=== PATIENT | female | born 1950 | race Caucasian/White ===

== ENCOUNTER → 2020-12-04 15:59 | Outpatient (CLI) | payer MEDICARE, OTHER, SELFPAY ==
--- NOTE | ~2020-12-04 | MM_ITS ---
EXAMINATION: MM screening [facility] BI w monet HISTORY: Screening mammogram TECHNIQUE: Craniocaudal and mediolateral oblique 3-D tomosynthesis images were obtained and synthetic 2-D images were generated. CAD analysis was submitted and interpreted. COMPARISON: 10/10/2019, 08/16/2018, 07/13/2017 bilateral digital screening mammogram examinations BREAST PARENCHYMAL COMPOSITION: The breasts are heterogeneously dense, which may obscure small masses . FINDINGS: Right upper outer quadrant 4.7 mm circumscribed benign lesion, likely a benign intramammary lymph node (craniocaudal Tomosynthesis image 23/72) Circumscribed 2.7 mm probable axillary tail left intramammary lymph node, present on previous mammogr ams dating back to 07/13/2017. There is no evidence of suspicious mass, calcification, or architectural distortion to suggest malig amanda in either breast. There has been no suspicious interval change. IMPRESSION: 1. No mammographic evidence of malignancy. 2. Recommend routine screening mammography in one year. BI-RADS Category 2: Benign finding(s). Reviewed, dictated and finalized at location A. [facility]
== END ==
PROVIDERS: Visit Provider Nurse Practitioner Obstetrics & Gynecology
DX: Z12.31 Encounter for screening mammogram for malignant neoplasm of breast (principal)
CPT/HCPCS: 77063; 77067

== ENCOUNTER → 2021-05-04 08:18 | Outpatient (CLI) | payer MEDICARE, OTHER, SELFPAY ==
--- NOTE | ~2021-05-04 | XR_ITS ---
EXAMINATION:XR cervical spine min 6V DATE: 05/04/2021 09:53 INDICATION: Neck pain TECHNIQUE: AP, lateral, lateral swimmers, bilateral oblique, and odontoid views of the cervical spine are provided. COMPARISON: None FINDINGS: There are 2 mm of anterolisthesis of C4 on C5. The odontoid is intact. No fracture is ident ified. The vertebral body heights are maintained. There is mild loss of intervertebral disc space hei ght at C5-6 and C6-7. There is moderate facet and uncovertebral joint osteoarthritis throughout the c ervical spine. IMPRESSION: 1. Moderate cervical spondylosis without acute findings. Reviewed, dictated and finalized at location A.
== END ==
PROVIDERS: Visit Provider Physician Assistant
DX: M79.601 Pain in right arm (principal); M79.602 Pain in left arm; M47.892 Other spondylosis, cervical region
CPT/HCPCS: 72052

== ENCOUNTER → 2021-12-29 09:15 | Outpatient (CLI) | payer MEDICARE, OTHER, SELFPAY ==
[2021-12-29 11:54] LABS: SARS-CoV-2 RNA PCR Negative
== END ==
PROVIDERS: PCP Family Medicine; Visit Provider Physician Assistant
DX: R05.9 Cough, unspecified (principal); Z20.822 Contact with and (suspected) exposure to COVID-19
CPT/HCPCS: C9803; U0003; U0005

== ENCOUNTER 2022-02-02 17:31 | Emergency (ER) | payer MEDICARE, OTHER, SELFPAY ==
[2022-02-02 17:33] VITALS: BP 153/92; PULSE 116; RESP 18; TEMP 36.9; O2SAT 99
--- NOTE | 2022-02-02 17:59 | ED.EPISTAXIS ---
HPI - Epistaxis General Chief complaint: Epistaxis Stated complaint: nose bleed Time Seen by Provider: 02/02/22 17:57 Source: patient Mode of arrival: ambulatory Limitations: no limitations History of Present Illness HPI Narrative: Patient is a 72-year-old female who presents the ED with report of epistaxis. Patient reports she was working outside in the yard planting [place] around 430 pm today when she bent over and suddenly felt dripping from her nose. She looked down she had a nosebleed coming from her left nostril. The bleeding has persisted since then. She has tried holding pressure at home but it has persisted prompting her presentation to the ED today. Patient has had 1 prior similar nosebleed which she was able to control at home. She does not follow with an ENT but did see one in the distant past. No dizziness, lightheadedness, weakness. No recent forceful nose blowing, congestion, rhinorrhea, fevers, chills. Related Data Home Medications Medication Instructions Recorded Confirmed cholecalciferol (vitamin D3) 25 1,000 unit PO DAILY 09/30/19 01/03/22 mcg (1,000 unit) capsule lysine 500 mg tablet 500 mg PO DAILY 09/30/19 01/03/22 prasterone (dhea) 50 mg tablet 50 mg PO DAILY 09/30/19 01/03/22 valacyclovir 1 gram tablet 1,000 mg PO TID 09/30/19 01/03/22 vitamin B12 500 mcg-folic acid 400 1 tablet PO DAILY 09/30/19 01/03/22 mcg tablet zinc 50 mg tablet 50 mg PO DAILY 09/30/19 01/03/22 Allergies Allergy/AdvReac Type Severity Reaction Status Date / Time codeine Allergy Unknown nightmares Verified 02/02/22 18:57 and hallucinations Review of Systems Review of Systems: CONSTITUTIONAL: Denies fever, chills. ENT: Reports L sided epistaxis. Denies rhinorrhea, congestion. CARDIOVASCULAR: Denies chest pain. RESPIRATORY: Denies cough or dyspnea. GASTROINTESTINAL: Denies abdominal pain, nausea, vomiting, or diarrhea. NEUROLOGIC: Denies dizziness, lightheadedness, numbness, or weakness. All systems reviewed & are unremarkable except as noted in HPI and below PMFSH Past Medical History Medical History Asymptomatic microscopic hematuria Osteopenia Retinal tear s/p repair Surgical History Surgical History History of appendectomy Family History Family History Father Diabetes mellitus Family history of Alzheimer's disease Family history of coronary artery disease Mother Hypertension Family history of coronary artery disease Sibling Hypertension Social History Social History Smoking packs per day: 0.5 Smoking cigarettes per day: 10.0 Years smoked: 13 Smoking pack-years: 6.50 Smoking status: Never smoker Tobacco type: cigarettes Second hand tobacco smoke exposure: No Smoking end date: 10/09/04 Alcohol intake: current Drinks per week: 3 Substance use: never Substance use type: does not use Gender identity (if verbalized by the patient): Female Sexual Orientation (if Verbalized by the Patient): Straight or Heterosexual Exam Narrative: GENERAL: Well appearing, well-nourished, non-toxic, in no acute distress. HEAD: Normocephalic, atraumatic. EYES: PERRL/EOMI, conjunctivae clear bilaterally. NOSE: Dried blood around L nare. No active areas of bleeding from Kiesselbach plexus upon evaluation. THROAT: Pharynx clear, no exudate. MMs moist. Minimal blood in posterior pharynx, no blood streaming down. NECK: Supple. No adenopathy, no masses. RESPIRATORY: Airway patent, respirations nonlabored. Clear to auscultation bilaterally, no rales, rhonchi, wheezing. CARDIOVASCULAR: Regular rate and rhythm without murmurs, rubs, or gallops. Radial pulses 2+ and equal bilaterally. MUSCULOSKELETAL: Moves all extremities. Strength/ROM intact without gross deformities. SKIN:
[2022-02-02 18:56] VITALS: BP 140/105; PULSE 92; RESP 18; O2SAT 98
[2022-02-02 20:10] VITALS: BP 149/106; PULSE 79; RESP 14; O2SAT 98
== END 2022-02-02 20:10 | disposition home or self-care (01) ==
PROVIDERS: Emergency Provider Emergency Medicine; PCP Family Medicine
DX: R04.0 Epistaxis (principal); M85.80 Other specified disorders of bone density and structure, unspecified site; Z87.891 Personal history of nicotine dependence
CPT/HCPCS: 30905; 99282

== ENCOUNTER 2023-02-02 00:36 | Day surgery (SDC) | payer MEDICARE, OTHER, SELFPAY ==
--- NOTE | 2023-02-01 20:37 | PM.HPGS ---
History of Present Illness History of Present Illness Consent: Risks, benefits, and alternatives have been discussed and questions answered. Patient agrees to proceed with procedure. Chief complaint: Dyskinesia of Esophagus, Hx of Colon Polyps Narrative: Madhuri Fowler is a 73 year old female with dysphagia, hx of Schatzki's ring, and hx of polyps . Review of Systems Review of Systems: All systems reviewed & are unremarkable except as noted in HPI and below PMFSH Past Medical History Medical History Asymptomatic microscopic hematuria HTN (hypertension) Obesity Osteopenia Retinal tear s/p repair Surgical History Surgical History History of appendectomy Family History Family History Father Diabetes mellitus Family history of Alzheimer's disease Family history of coronary artery disease Mother Hypertension Family history of coronary artery disease Sibling Hypertension Social History Social History Smoking packs per day: 0.5 Smoking cigarettes per day: 10.0 Years smoked: 10 Smoking pack-years: 5.00 Smoking status: Former smoker Tobacco type: cigarettes Second hand tobacco smoke exposure: No Smoking end date: 10/09/04 Alcohol intake: current Drinks per week: 1 Substance use: never Substance use type: does not use Living arrangements: with family Occupation/Education: retired Gender identity (if verbalized by the patient): Female Sexual Orientation (if Verbalized by the Patient): Straight or Heterosexual Spiritual care concerns: No Meds Home Medications and Allergies Home Medications Medication Instructions Recorded Confirmed Type prasterone (dhea) 50 mg tablet 50 mg PO DAILY 09/30/19 01/26/23 History (DHEA) vitamin B12 500 mcg-folic acid 400 1 tablet PO DAILY 09/30/19 01/26/23 History mcg tablet zinc 50 mg tablet 50 mg PO DAILY 09/30/19 01/26/23 History pantoprazole 40 mg tablet,delayed 40 mg PO QAM #90 tabs 09/08/22 01/26/23 Rx release lisinopril 10 mg tablet 10 mg PO DAILY #90 tabs 12/05/22 01/26/23 Rx Calcium With Folate 1 cap PO DAILY 01/26/23 01/26/23 History ascorbic acid (vitamin C) 500 mg 500 mg PO DAILY 01/26/23 01/26/23 History capsule biotin 100 mg PO DAILY 01/26/23 01/26/23 History cholecalciferol (vitamin D3) 125 125 mcg PO DAILY 01/26/23 01/26/23 History mcg (5,000 unit) tablet (Vitamin D3) magnesium 500 mg tablet 500 mg PO QACDINNER 01/26/23 01/26/23 History valacyclovir 500 mg tablet 500 mg PO DAILY 01/26/23 01/26/23 History Allergies Allergy/AdvReac Type Severity Reaction Status Date / Time codeine AdvReac Intermediate nightmares Verified 02/02/23 12:01 and hallucinations Exam Const: General: alert Orientation/consciousness: patient oriented x3 Resp: Auscultation: clear to auscultation bilaterally Cardio: Rhythm: regular rhythm GI: GI Palp: Yes Soft to palpation and No Tenderness to palpation present (GI) Neuro: General: patient oriented x3 Assessment and Plan Assessment and plan (1) History of esophageal stricture: Code(s): Z87.19 - Personal history of other diseases of the digestive system Status: Acute Assessment and Plan: EGD with possible biopsy or dilatation or cautery. (2) History of colon polyps: Code(s): Z86.010 - Personal history of colonic polyps Status: Acute Assessment and Plan: Colonoscopy with possible biopsy or polypectomy or cautery or injection of substances.
[2023-02-02 12:02] VITALS: BP 133/90; PULSE 85; RESP 18; TEMP 36.1; O2SAT 97
[2023-02-02] MEDS: LACTATED RINGERS 1,000 ML 150 ML IV CONT (12:19)
--- NOTE | 2023-02-02 12:38 | WPDANESEPPF ---
Anes - Initial Pre Proc Eval Procedure: Operation Date: 02/02/23 13:15 Proposed Procedures p Esophagogastroduodenoscopy & Colonoscopy - Antoni Franklin MD Date/Time: 02/02/23 12:38 Surgeon: Antoni Franklin MD Pre Op Diagnosis: Dyskinesia of Esophagus, Hx of Colon Polyps Patient Data Age: 73 Gender: F Height: 1.63 m Weight: 78.6 kg Last Vital Signs Temp 36.1 C L 02/02/23 12:02 Pulse 85 02/02/23 12:02 Resp 18 02/02/23 12:02 BP 133/90 02/02/23 12:02 Pulse Ox 97 02/02/23 12:02 O2 Del Method Room Air 02/02/23 12:02 Allergies Allergy/AdvReac Type Severity Reaction Status Date / Time codeine AdvReac Intermediate nightmares Verified 02/02/23 12:01 and hallucinations Home Medications Medication Instructions Recorded Confirmed Type prasterone (dhea) 50 mg tablet 50 mg PO DAILY 09/30/19 01/26/23 History (DHEA) vitamin B12 500 mcg-folic acid 400 1 tablet PO DAILY 09/30/19 01/26/23 History mcg tablet zinc 50 mg tablet 50 mg PO DAILY 09/30/19 01/26/23 History pantoprazole 40 mg tablet,delayed 40 mg PO QAM #90 tabs 09/08/22 01/26/23 Rx release lisinopril 10 mg tablet 10 mg PO DAILY #90 tabs 12/05/22 01/26/23 Rx Calcium With Folate 1 cap PO DAILY 01/26/23 01/26/23 History ascorbic acid (vitamin C) 500 mg 500 mg PO DAILY 01/26/23 01/26/23 History capsule biotin 100 mg PO DAILY 01/26/23 01/26/23 History cholecalciferol (vitamin D3) 125 125 mcg PO DAILY 01/26/23 01/26/23 History mcg (5,000 unit) tablet (Vitamin D3) magnesium 500 mg tablet 500 mg PO QACDINNER 01/26/23 01/26/23 History valacyclovir 500 mg tablet 500 mg PO DAILY 01/26/23 01/26/23 History Patient hx anesthesia problems: none Family hx anesthesia problems: none Results Review: All pre-operative results and documents have been reviewed as part of the pre-operative evaluation. PMF Past Medical History Medical History Asymptomatic microscopic hematuria HTN (hypertension) Obesity Osteopenia Retinal tear s/p repair Surgical History Surgical History History of appendectomy Family History Family History Father Diabetes mellitus Family history of Alzheimer's disease Family history of coronary artery disease Mother Hypertension Family history of coronary artery disease Sibling Hypertension Social History Social History Smoking packs per day: 0.5 Smoking cigarettes per day: 10.0 Years smoked: 10 Smoking pack-years: 5.00 Smoking status: Former smoker Tobacco type: cigarettes Second hand tobacco smoke exposure: No Smoking end date: 10/09/04 Alcohol intake: current Drinks per week: 1 Substance use: never Substance use type: does not use Living arrangements: with family Occupation/Education: retired Gender identity (if verbalized by the patient): Female Sexual Orientation (if Verbalized by the Patient): Straight or Heterosexual Spiritual care concerns: No Anes - Eval Final PreProcedure Day of Procedure 02/02/23 12:38 Patient weight: overweight Heart: regular rate and rhythm Lungs: clear to auscultation Airway: Mallampati scale class 1 Neurological: alert and oriented Last oral intake: >/= 8 hours ASA classification: II Emergent: no Anesthetic plan: proceed Anesthesia type and monitoring: general GIVS and standard monitoring Results Review: All pre-operative results and documents have been reviewed as part of the pre-operative evaluation. Informed Consent: The patient's anesthetic plan and its attendant risks and benefits were discussed with the patient/family/POA. Questions were solicited and answers provided to the satisfaction of the patient/family/POA.
--- NOTE | 2023-02-02 13:07 | SUR.OPER ---
EGD: START 1308 -, END 1312. COLONOSCOPY: START-1318, END-1327 PATIENT HAD SMALL BLOODY NOSE DURING PROCEDURE. ANESTHESIA SUCTIONED WITH JAMAICAUER.
[2023-02-02] MEDS: SIMETHICONE ORAL SUSPENSION 20 MG/0.3 ML 30 ML BOTTLE 0.6 ML IRRIGATION (13:23)
[2023-02-02 13:33] VITALS: BP 123/71; PULSE 75; RESP 18; O2SAT 97
[2023-02-02 13:43] VITALS: BP 122/63; PULSE 71; RESP 20; O2SAT 98
[2023-02-02 13:53] VITALS: BP 135/77; PULSE 69; RESP 20; O2SAT 100
--- NOTE | 2023-02-02 14:04 | SUR.PHASEII ---
Patient arrived in postop with gauze packing in right nostril after nosebleed during procedure. After 20 minutes in postop, gauze removed. No further bleeding from nostril noted at this time. Patient and spouse instructed to go to ED if nosebleed resumes and unable to stop.
== END 2023-02-02 14:09 | disposition home or self-care (01) ==
PROVIDERS: PCP Family Medicine; Visit Provider Internal Medicine Gastroenterology
PROC: 0DJ08ZZ Inspection of Upper Intestinal Tract, Via Natural or Artificial Opening Endoscopic (ICD-10-PCS; CPT 43235; principal; 2023-02-02 13:15)
DX: Z12.11 Encounter for screening for malignant neoplasm of colon (principal); K57.30 Diverticulosis of large intestine without perforation or abscess without bleeding; K64.8 Other hemorrhoids; Z86.010 Personal history of colon polyps; K22.2 Esophageal obstruction; I10 Essential (primary) hypertension; M85.80 Other specified disorders of bone density and structure, unspecified site; Z87.891 Personal history of nicotine dependence
CPT/HCPCS: 43249; G0105; C1726; J2704; J7120

== ENCOUNTER → 2023-05-16 12:08 | Outpatient (CLI) | payer MEDICARE, OTHER, SELFPAY ==
--- NOTE | ~2023-05-16 | XR_ITS ---
EXAMINATION:XR_[id number]_CR, XR thoracic spine 2V DATE: 05/16/2023 12:45 INDICATION: Cervical and thoracic back pain. TECHNIQUE: 1. AP, lateral, lateral swimmers and odontoid views of the cervical spine are provided. 2. AP and lateral views of the thoracic spine were obtained. COMPARISON: Two-view chest radiograph dated 07/12/2016 FINDINGS: Cervical spine: Straightening of the normal cervical lordosis. Vertebral body heights are normal. Mild disc height lo ss at C5-C6 and C6-C7. Odontoid is intact. Mild osteoarthritis at the atlantoaxial articulation. [place] re facet osteoarthritis on the left at C3-C4 and C4-C5. Mild to moderate osteoarthritis prominence of the remaining cervical spine. Prevertebral soft tissues are normal. Thoracic spine: 10 degree lower thoracic levoscoliosis. Sagittal alignment is normal. Unchanged mild anterior wedging at T6. Moderate disc height loss at T6-T7 T7-T8 and T10-11 and mild disc height loss at the remainin g thoracic levels. Visualized portion of lungs are clear with no pleural effusion or pneumothorax. Ca rdiomediastinal silhouette is normal. IMPRESSION: 1. Mild cervical spondylosis. 2. Chronic mild anterior wedging at T6. No evident acute osseous abnormality. 3. Moderate thoracic spondylosis with mild lower thoracic levoscoliosis. Reviewed, dictated and finalized at location L. IMPRESSION: 1. Mild cervical spondylosis. 2. Chronic mild anterior wedging at T6. No evident acute osseous abnormality. 3. Moderate thoracic spondylosis with mild lower thoracic levoscoliosis.
== END ==
PROVIDERS: PCP Family Medicine; Visit Provider Family Medicine
DX: M47.892 Other spondylosis, cervical region (principal); M47.894 Other spondylosis, thoracic region
CPT/HCPCS: 72040; 72070

== ENCOUNTER → 2023-10-17 12:10 | Outpatient (CLI) | payer MEDICARE, OTHER, SELFPAY ==
--- NOTE | ~2023-10-17 | DEXA_ITS ---
Bone Density Report Name: RENA ABARCA Age: 73 Sex: Female Ethnicity: White Date of : 1950 Indication: osteopenia; prior fracture; postmenopausal Referring Provider: Yovany Delgadillo Study: Bone densitometry was performed. Exam Date: October 17, 2023 Accession number: [id number] Bone Density: Region BMD T-score Z-score Classification AP Spine (L1-L4) 0.971 -0.7 1.6 Normal Femoral Neck (Left) 0.661 -1.7 0.3 Osteopenia Total Hip (Left) 0.824 -1.0 0.7 Normal Femoral Neck (Right) 0.690 -1.4 0.5 Osteopenia Total Hip (Right) 0.773 -1.4 0.3 Osteopenia Total Hip Mean 0.799 -1.2 0.5 Osteopenia World Health Organization criteria for BMD impression classify patients as: Normal (T-score at or above -1.0), Osteopenia (T-score between -1.0 and -2.5), or Osteoporosis (T-score at or below -2.5). Previous Exams: Region Exam Age BMD T-score BMD Change BMD Change Date g/cm2 vs Baseline vs Previous AP Spine(L1-L4) 10/17/2023 73 0.971 -0.7 -0.004 -0.009 10/10/2019 69 0.980 -0.6 0.005 0.005 07/04/2016 66 0.975 -0.7 Total Hip(Left) 10/17/2023 73 0.824 -1.0 0.015 0.031* 10/10/2019 69 0.792 -1.2 -0.016 -0.016 07/04/2016 66 0.809 -1.1 Total Hip(Right) 10/17/2023 73 0.773 -1.4 0.013 0.010 10/10/2019 69 0.763 -1.5 0.003 0.003 07/04/2016 66 0.760 -1.5 *Denotes significance at 95% confidence level, LSC for AP Spine = 0.022 g/cm2, LSC for Total Hip = 0.027 g/cm2 Clinical Information Provided by Patient: Has had a low trauma fracture Has used the following medications: Vitamin D, Calcium, mtv, Pantoprazole Patient maximum height was 64 Menopause Age: 49 No regular weight bearing exercise Drinks caffeinated beverages Onset of menses at age 17 Number of children 1 Impression: The patient has low bone mass, based on the Left Femoral Neck T-score. The patient has risk factors, including: previous fracture. No significant bone loss was observed. Discussion: BONE DENSITY IS LOW AT ONE OR MORE SKELETAL SITES. This patient's lowest T-score is low at one or more skeletal sites. It meets the World Health Organization's (WHO) criteria for ?low bone mass? (T-score between -1.0 and -2.5). The patient's 10-year risk of fracture as calculated by FRAX is less than the threshold where pharmacological therapy is recommended by the National Osteoporosis Foundation (NOF). However, all treatment decisions require clinical judgment and consideration of individual patient fa
== END ==
PROVIDERS: PCP Nurse Practitioner Obstetrics & Gynecology; Visit Provider Family Medicine
DX: M85.89 Other specified disorders of bone density and structure, multiple sites (principal); Z78.0 Asymptomatic menopausal state
CPT/HCPCS: 77080

== ENCOUNTER 2024-06-25 10:14 | Outpatient (CLI) | payer MEDICARE, OTHER, SELFPAY ==
--- NOTE | ~2024-06-25 | XR_ITS ---
EXAMINATION: XR chest 2V DATE: 06/25/2024 10:27 INDICATION: 2 weeks of cough and congestion TECHNIQUE: frontal view of the chest was obtained. COMPARISON: None FINDINGS: The lungs are clear with no focal airspace opacities, pulmonary edema, pleural effusion or pneumothor ax. The cardiomediastinal silhouette is normal. IMPRESSION: 1. No acute cardiopulmonary disease. Reviewed, dictated and finalized at location B.
== END 2024-06-25 10:15 | disposition home or self-care (01) ==
LOC: MICIMG 10:16
PROVIDERS: PCP Family Medicine; Visit Provider Family Medicine
DX: R05.9 Cough, unspecified (principal)
CPT/HCPCS: 71046

== ENCOUNTER 2025-08-14 01:18 | Day surgery (SDC) | payer MEDICARE, OTHER, SELFPAY ==
[2025-08-14 09:07] VITALS: BP 149/92; PULSE 72; RESP 20; TEMP 37; O2SAT 95
[2025-08-14 09:08] VITALS: BMI 29.9
[2025-08-14] MEDS: SIMETHICONE ORAL SUSPENSION 20 MG/0.3 ML 30 ML BOTTLE 1.8 ML PO (09:12)
[2025-08-14] MEDS: LACTATED RINGERS 1,000 ML 150 ML IV CONT (09:29)
--- NOTE | 2025-08-14 09:33 | WPDANESEPPF ---
Anes - Initial Pre Proc Eval Procedure: Operation Date: 08/14/25 10:30 Proposed Procedures p Esophagogastroduodenoscopy - Sumit Alvarez MD Date/Time: 08/14/25 09:33 Surgeon: Sumit Alvarez MD Pre Op Diagnosis: Personal history of other diseases of the digestiv Patient Data Age: 75 Gender: F Height: 1.63 m Weight: 79.1 kg Last Vital Signs Temp 37.0 C 08/14/25 09:07 Pulse 72 08/14/25 09:07 Resp 20 08/14/25 09:07 BP 149/92 H 08/14/25 09:07 Pulse Ox 95 08/14/25 09:07 O2 Del Method Room Air 08/14/25 09:07 Allergies Allergy/AdvReac Type Severity Reaction Status Date / Time codeine AdvReac Intermediate nightmares Verified 08/14/25 09:04 and hallucinations Home Medications ?Medication ?Instructions ?Recorded ?Confirmed ?Type prasterone (DHEA) 50 mg tablet 50 mg PO DAILY 09/30/19 08/14/25 History (DHEA) zinc 50 mg tablet 50 mg PO DAILY 09/30/19 08/14/25 History ascorbic acid (vitamin C) 500 mg 500 mg PO DAILY 01/26/23 08/14/25 History capsule biotin 100 mg PO DAILY 01/26/23 08/14/25 History cholecalciferol (vitamin D3) 125 125 mcg PO DAILY 01/26/23 08/14/25 History mcg (5,000 unit) tablet (Vitamin D3) magnesium 500 mg tablet 500 mg PO QACDINNER 01/26/23 08/14/25 History valacyclovir 500 mg tablet 500 mg PO DAILY 01/26/23 08/14/25 History lisinopril 20 mg tablet 20 mg PO DAILY #90 tabs 12/17/24 08/14/25 Rx pantoprazole 40 mg tablet,delayed 40 mg PO QAM #90 tabs 05/22/25 08/14/25 Rx release cyclobenzaprine 5 mg tablet 5 mg PO TID PRN muscle spasm #30 06/17/25 08/14/25 Rx tabs Patient hx anesthesia problems: post op nausea/vomiting Family hx anesthesia problems: none Results Review: All pre-operative results and documents have been reviewed as part of the pre-operative evaluation. [facility] Past Medical History Medical History Hypertensive CKD (chronic kidney disease) CKD (chronic kidney disease), stage III Obesity HTN (hypertension) Asymptomatic microscopic hematuria Osteopenia Retinal tear s/p repair Surgical History Surgical History History of appendectomy Family History Family History Father Diabetes mellitus Family history of Alzheimer's disease Family history of coronary artery disease Mother Hypertension Family history of coronary artery disease Sibling Hypertension Social History Social History Years smoked: 10 Smoking status: Former smoker Tobacco type: cigarettes Second hand tobacco smoke exposure: No Smoking end date: 10/09/04 Alcohol intake: current Alcohol use details: Rarely Substance use: never Substance use type: does not use Do You Feel Safe in your Home?: Yes Lack of Transportation: No Lack of Food: Never True Current Housing: I Have Housing Concerned About Future Housing: No Difficulty Paying Gas/Electric Bills: No Difficulty Paying for Meds: No Currently Unemployed: No Education: Associate Degree Living arrangements: with family Occupation/Education: retired Gender identity (if verbalized by the patient): Female Sexual Orientation (if Verbalized by the Patient): Straight or Heterosexual Anes - Eval Final PreProcedure Day of Procedure 08/14/25 09:33 Patient weight: overweight Heart: regular rate and rhythm Lungs: clear to auscultation Airway: Mallampati scale class 1 Neurological: alert and oriented Last oral intake: >/= 8 hours ASA classification: III Emergent: no Anesthetic plan: proceed Anesthesia type and monitoring: general GIVS and standard monitoring Results Review: All pre-operative results and documents have been reviewed as part of the pre-operative evaluation. Informed Consent: The patient's anesthetic plan and its attendant risks and benefits were discussed with the patient/family/POA. Questions were solicited and answers provided to the satisfaction of the patient/family/POA.
--- NOTE | 2025-08-14 09:41 | PM.IMHP ---
H&P: HPI History of Present Illness Date/Time: 08/14/25 09:41 Chief Complaint: Dysphagia Narrative: This patient had a Schatzki ring dilated in 2022. She is now experiencing dysphagia to solids and sometimes to liquids. She is referred for EGD and possible dilatation. Review of Systems Review of Systems: All systems reviewed & are unremarkable except as noted in HPI and below PMFSH Past Medical History Medical History Hypertensive CKD (chronic kidney disease) CKD (chronic kidney disease), stage III Obesity HTN (hypertension) Asymptomatic microscopic hematuria Osteopenia Retinal tear s/p repair Surgical History Surgical History History of appendectomy Family History Family History Father Diabetes mellitus Family history of Alzheimer's disease Family history of coronary artery disease Mother Hypertension Family history of coronary artery disease Sibling Hypertension Social History Social History Years smoked: 10 Smoking status: Former smoker Tobacco type: cigarettes Second hand tobacco smoke exposure: No Smoking end date: 10/09/04 Alcohol intake: current Alcohol use details: Rarely Substance use: never Substance use type: does not use Do You Feel Safe in your Home?: Yes Lack of Transportation: No Lack of Food: Never True Current Housing: I Have Housing Concerned About Future Housing: No Difficulty Paying Gas/Electric Bills: No Difficulty Paying for Meds: No Currently Unemployed: No Education: Associate Degree Living arrangements: with family Occupation/Education: retired Gender identity (if verbalized by the patient): Female Sexual Orientation (if Verbalized by the Patient): Straight or Heterosexual Meds Home Medications and Allergies Home Medications ?Medication ?Instructions ?Recorded ?Confirmed ?Type prasterone (DHEA) 50 mg tablet 50 mg PO DAILY 09/30/19 08/14/25 History (DHEA) zinc 50 mg tablet 50 mg PO DAILY 09/30/19 08/14/25 History ascorbic acid (vitamin C) 500 mg 500 mg PO DAILY 01/26/23 08/14/25 History capsule biotin 100 mg PO DAILY 01/26/23 08/14/25 History cholecalciferol (vitamin D3) 125 125 mcg PO DAILY 01/26/23 08/14/25 History mcg (5,000 unit) tablet (Vitamin D3) magnesium 500 mg tablet 500 mg PO QACDINNER 01/26/23 08/14/25 History valacyclovir 500 mg tablet 500 mg PO DAILY 01/26/23 08/14/25 History lisinopril 20 mg tablet 20 mg PO DAILY #90 tabs 12/17/24 08/14/25 Rx pantoprazole 40 mg tablet,delayed 40 mg PO QAM #90 tabs 05/22/25 08/14/25 Rx release cyclobenzaprine 5 mg tablet 5 mg PO TID PRN muscle spasm #30 06/17/25 08/14/25 Rx tabs Allergies Allergy/AdvReac Type Severity Reaction Status Date / Time codeine AdvReac Intermediate nightmares Verified 08/14/25 09:04 and hallucinations Vital Signs Vital Signs - 24 hr 08/14/25 09:07 Temperature 98.6 F Pulse Rate 72 Respiratory Rate 20 Blood Pressure 149/92 H Pulse Oximetry 95 Oxygen Delivery Room Air Exam Const: General: cooperative and healthy appearing Resp: Effort & Inspection: normal respiratory effort and able to speak in complete sentences Auscultation: clear to auscultation bilaterally Cardio: Rate: regular rate Rhythm: regular rhythm GI: Inspection: normal to inspection GI Palp: No No hepatosplenomegaly present Auscultation: normal bowel sounds Rectal Exam: deferred Skin: General skin exam: normal color Psych: Appearance: grossly normal Mental Status: mental status grossly normal Assessment and Plan Assessment and plan (1) History of esophageal stricture: Code(s): Z87.19 - Personal history of other diseases of the digestive system Status: Acute Assessment and Plan: The patient is deemed a good candidate for the procedure. Consent signed. Will proceed.
--- NOTE | 2025-08-14 09:52 | S_PTH ---
PATIENT: Madhuri Fowler LOC: [facility] Thakur#:[id number] AGE/SX: 75/F ROOM: RE08/14/[address]: Sumit Alvarez MD : [id number] BED: DIS: 08/14/2025 SPEC #: [id number] RECD: 08/14/25 11:35 STATUS: ARIN REQ #: [id number] CAMERON: 08/14/25 09:[address]: Sumit Alvarez DEPT: [facility] Surgical RECD BY: Angelica Griffith ENTERED: 08/14/25 11:35 SP TYPE: Surgical OTHR DR: Yovany Delgadillo MD Tissues: A - Esophageal Biopsy Procedures: Hematoxylin and Eosin Stain Gross and Microscopic Level 4
[2025-08-14 09:55] VITALS: BP 127/69; PULSE 73; RESP 26; O2SAT 95
[2025-08-14 10:05] VITALS: BP 125/89; PULSE 72; RESP 18; O2SAT 99
[2025-08-14 10:15] VITALS: BP 131/73; PULSE 68; RESP 15; O2SAT 99
--- NOTE | 2025-08-14 10:50 | SUR.PHASEII ---
Pt waiting for ride.
--- OUTSIDE RECORDS SUMMARY | 2025-08-14 16:10 | XMS_ITS | Data Portability ---
Author Organization [facility] [place] Address [address] [place] [address] Care Team Providers Care Spd Tech Name Role Phone YOVANY STEEN Primary Care Provider Assessment Encounter Date Assessment Date Assessment LastModified by Organization Details LastModified Time 11/16/2020 11/16/2020 Annual gynecological exam performed. Patient will come back in a year unless there are new symptoms. Not available 11/16/2020 09:53:36 08/14/2023 08/14/2023 Annual gynecological exam performed. Patient will come back in a year unless there are new symptoms. [email or web address] Not available 08/14/2023 14:36:29 Plan of Treatment Reminders Order Date Submit Date Provider Last Modified By Organization Details Last Modified Time Details Appointments [facility] 2024 08:45A M RACHEL Tubbs Not available Not available Not available Lab None recorded. Referral None recorded. Procedures None recorded. Surgeries None recorded. Imaging None recorded. Medication Orders estradiol 0.01% (0.1 mg/gram) vaginal cream 2024 025 [facility] #[id number], [address] [place] [address], [id number], 01/14/2025 12:22:46 estradiol 0.01% (0.1 mg/gram) vaginal cream 2023 024 [facility] #[id number], [address] [place] [address], [id number], 09/10/2024 10:37:24 Valtrex 500 mg tablet 2022 023 [facility] #84623, [address] [facility] [address] [place] [address], [id number], 08/14/2023 14:44:23 Valtrex 500 mg tablet 2020 021 [facility], [address] [facility] [address] [place] [address], [id number], 05/20/2021 16:26:27 Valtrex 500 mg tablet 2020 021 [facility], [address] [facility] [address] [place] [address], [id number], 11/16/2020 10:20:14 Patient TargetsNo targets recorded. Patient InstructionsNo instructions recorded. Reason for Referral None Reported. Results Created Date Observation Date Name Description Value Unit Range Abnormal Flag Note LastModifiedBy Organization Detail LastModifiedTime 09/10/20 24 09/10/2024 [facility]AB [facility], KIRBY bacterial vaginosis (bv), tma Negati ve negati ve Not Available [facility] (Lab) [address] [place], [address], 09/11/2024 17:55:47 09/10/20 24 09/10/2024 WOMEN 'S HEALT H SWAB PL[facility], KIRBY abigail species, tma Negati ve negati ve Not Available [facility] (Lab) [address] [place], [address], 09/11/2024 17:55:47 09/10/20 24 09/10/2024 WOMEN 'S HEALT H SWAB PLUS, KIRBY abigail glabrata, tma Negati ve negati ve Not Available [facility] (Lab) [address] [place], [address], 09/11/2024 17:55:47 09/10/20 24 09/10/2024 WOMEN 'S HEALT H SWAB PLUS, KIRBY trichomonas vaginalis, tma Negati ve negati ve Not Available [facility] (Lab) [address] [facility], [place], [address], 09/11/2024 17:55:47 09/10/20 24 09/10/2024 WOMEN 'S HEALT H SWAB PLUS, KIRBY chlamydia trachomatis, PCR Negati ve negati ve Not Available [facility] (Lab) [address] [facility], [place], [address], 09/11/2024 17:55:47 09/10/20 24 09/10/2024 WOMEN 'S HEALT H SWAB PLUS, KIRBY neisseria gonorrhoeae, PCR Negati ve negati ve Bacte rial vagin osis detec ts the follo wing bacte shira assoc iated with bacte rial vagin osis (BV): Lacto bacil sara (L. gasse ri, L. crisp atus and L. jense cleo), Gardn erell a vagin bry, and Atopo bium vagin ae. A singl e quali tativ e resul t is repor uriel base on instr ument softw are to deter mine BV posit roldan or negat roldan statu s. The [facility] speci es group tests for C. albic ans, C. tropi calis , C. parap jam is, C. dubli niens is. Testi ng is perfo rmed using the Trans cript ion Media uriel Ampli ficat ion metho d. Tests for Soledad da glabr sirisha, Trich omona s vagin bry, Chlam ydia trach omati s, and Neiss eria gonor rhoea e are also inclu ded in this panel . Not Available [facility] (Lab) [address] [facility], [place], [address], 09/11/2024 17:55:47 12/08/19 21 12/04/2020 MAMMO , scree milli, bilat eral No observ ation record ed. [facility] [address], [place], [address], 12/21/2020 12:12:08 Result Notes None recorded. 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 09:54:35 Microsco pic hematuri a [id number] Completed 201511/16/2020 Other microsco pic hematuri a;Practi ce ID: 0001 Aurea pace, [facility] 09:54:22 Acute vaginiti s [id number] Completed 201511/16/2020 Acute vaginiti s;Practi ce ID: 0001 Aurea pace, [facility] 09:54:09 Atrophic vaginiti s [id number] Completed 201511/16/2020 Postmeno pausal atrophic vaginiti s;Practi ce ID: 0001 Aurea pace, [facility] 09:54:11 Localize d swelling , mass and lump, neck Completed 201611/16/2020 Localize d swelling , mass and lump, neck;Pra ctice ID: 0001 Aurea pace, [facility] 09:54:20 Evaluati on finding Completed 201611/16/2020 Hematuri a, unspecif ied;Prac lashonda ID: 0001 Aurea pace, [facility] 09:54:[address] Concept Completed 201611/16/2020 Encounte r for general adult medical exam w abnormal findings ;Practic e ID: 0001 Aurea Benites katelynn [facility] 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 09:54:[address] Concept Completed 201711/16/2020 Encntr for general adult medical exam w/o abnormal findings ;Practic e ID: 0001 Aurea Benites katelynn [facility] 09:54:32 Screenin g for malignan t neoplasm of rectum Completed 201811/16/2020 Encounte r for screenin g for malignan t neoplasm of rectum;P ractice ID: 0001 Aurea Benites katelynn [facility] 09:54:29 Screenin g for malignan t neoplasm of cervix Completed 201811/16/2020 Encounte r for screenin g for malignan t neoplasm of cervix;P ractice ID: 0001 Aurea Benites katelynn [facility] 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 09:54:15 Problem Notes None recorded. Procedures Surgical History Date Name Laterality Status Provider Name and Address Organization Details Recorded Time 03/15/20 24 Date of Last Mammogram completed Aurea Benites [facility] 09/10/2024 10:20:35 08/14/20 23 Date of Last Pap Smear completed [facility] 08/14/2023 14:37:20 02/03/20 23 Date of Last Colonoscopy completed [facility] 09/10/2024 10:18:07 01/14/20 23 Colonoscopy completed [facility] 09/10/2024 10:24:27 10/09/18 91 cone biopsy completed [facility] 08/14/2023 14:39:24 10/09/18 81 extraction of wisdom tooth completed [facility] 08/14/2023 14:39:48 10/09/18 55 Appendectomy completed [facility] 08/14/2023 14:40:10 Imaging Results None recorded. Procedure Notes None recorded. Medical Equipment None Reported. Allergies Allergen ID Allergen Name Allergen Category Reaction Reaction Severity Criticality Documentation Date Start Date Code Code System Note Provider Name and Address Organization Details Recorded Time 9502 codeine medicatio n Not available Not available Not available 09/25/2020 2670 RxNorm Comme nt: [facility]at [facility]; Not Available [facility] 14:14:24 Medications Name Sig Start Date Stop Date Status Note LastModified by Organization Details LastModified Time valacyclo vir 1 gram tablet TK 1 T PO QD 11/16 completed Not Available Not Available Not Available Keflex 500 mg capsule take 1 capsule by oral route every 8 hours 07/23 completed Prescrib ed Elsewher e: No Locat ion: [facility] odify By: gonsalo archuleta DateTime : 07/18/20 17 03:00:00 PM Not Available Not Available Not Available lisinopri l 20 mg tablet TAKE 1 TABLET BY MOUTH DAILY active Not Available Not Available No t Available Diflucan 150 mg tablet take 1 tablet by oral route once 07/23 completed Prescrib ed Elsewher e: No Locat ion: [facility] M odify By: gonsalo archuleta DateTime : 07/18/20 17 03:00:00 PM Not Available Not Available Not Available valacyclo vir 500 mg tablet TAKE 1 TABLET BY MOUTH EVERY DAY 2024 active Not Available Not Available Not Avai lable pantopraz ole 20 mg tablet,de layed release take 2 tablet by oral route every day 05/20 completed Prescrib ed Elsewher e: Yes Loca tion: [facility] odify By: gonsalo georgeluis DateTime : 07/23/20 19 01:15:00 PM Not Available Not Available Not Available pantopraz ole 40 mg tablet,de layed release TAKE 1 TABLET BY MOUTH EVERY MORNING active Not Available Not Available No t Available lisinopri l 10 mg tablet TAKE 1 TABLET BY MOUTH DAILY 01/14 completed Not Available Not Available Not Available lisinopri l 5 mg tablet TAKE 1 TABLET BY MOUTH DAILY 08/14 completed Not Available Not Available Not Available triamcino lone acetonide 0.1 % lotion 08/14 completed Not Available Not Available Not Available estradiol 0.01% (0.1 mg/gram) vaginal cream insert 1g vaginall y at bedtime 2-3 times per week as maintena nce dose 2024 active Not Available Not Available Not Avai lable methylpre dnisolone 4 mg tablets in a dose pack FOLLOW PACKAGE DIRECTIO NS 05/20 completed Not Available Not Available Not Available Terazol 7 0.4 % vaginal cream insert 1 applicat orful by vaginal route every day for 7 days at bedtime 08/25 completed Prescrib ed Elsewher e: No Locat ion: [facility] odify By: momo archuleta DateTime : 08/19/20 16 04:05:20 PM Not Available Not Available Not Available Zovirax 5 % topical cream apply by topical route 5 times every day to the affected area(s) 07/23 completed Prescrib ed Elsewher e: No Locat ion: [facility] odify By: gonsalo archuleta DateTime : 08/24/20 16 02:21:07 PM Not Available Not Available Not Available Premarin 0.625 mg/gram vaginal cream insert (1G) by vaginal route every other day for one month then once a week as needed 07/18 completed Prescrib ed Kyle e: Maryellen Locat ion: [facility] Hal silvamanuel By: vivien archuleta DateTime : 08/16/20 16 01:00:00 PM Not Available Not Available Not Available Fluad Quad [id number] (65yr up)(PF) 60 mcg (15 mcg x 4)/0.5mL IM syringe PHARMACI ST ADMINIST ERED IMMUNIZA TION ADMINIST ERED AT TIME OF DISPENSI NG 05/20 completed Not Available Not Available Not Available Vitals Date Recorded Body height Body mass index (BMI) Body weight Systolic And Diastolic Provider Name and Address Organization Details Last Updated DateTime 11/16/2020 160.02 cm 32.8 kg/m2 91393.59 g 121/81 mm[Hg] Aurea Benites [facility] 11/16/2020 09:53:54 Date Recorded Body height Body mass index (BMI) Body weight Systolic And Diastolic Provider Name and Address Organization Details Last Updated DateTime 01/14/2025 160.02 cm 31.5 kg/m2 48333.44 g 108/72 mm[Hg] ASHVIN Verdin [facility] 01/14/2025 10:05:22 Date Recorded Body height Body mass index (BMI) Body weight Systolic And Diastolic Provider Name and Address Organization Details Last Updated DateTime 05/20/2021 160.02 cm 32.2 kg/m2 94711.81 g 121/79 mm[Hg] Evie Underwood [facility] 05/20/2021 14:44:09 Date Recorded Body height Body mass index (BMI) Body weight Systolic And Diastolic Provider Name and Address Organization Details Last Updated DateTime 08/14/2023 160.02 cm 30.8 kg/m2 71956.07 g 132/76 mm[Hg] Aurea Benites [facility] 08/14/2023 14:36:50 Date Recorded Body height Body mass index (BMI) Body weight Systolic And Diastolic Provider Name and Address Organization Details Last Updated DateTime 09/10/2024 160.02 cm 30.6 kg/m2 82730.48 g 142/89 mm[Hg] Aurea Benites [facility] 09/10/2024 10:16:51 Social History Question Answer Notes LastModified by Organizat ion Details LastModified Time Tobacco Smoking Status Former Smoker Aurea Benites [facility], [facility] 11/16/2020 09:56:51 Do You Have An Advance Directive? Yes [email or web address] Information n ot available 09/10/2024 Are You Blind Or Do You Have Difficulty Seeing? No [email or web address] Information n ot available 08/14/2023 What Is Your Level Of Caffeine Consumption? Moderate [email or web address] Information not available 11/16/2020 How Much Tobacco Do You Chew? None Information not available 09/10/2024 In The 14 Days Before Symptom Onset, Have You Had Close Contact With A Laboratory-confirm ed COVID-19 While That Case Was Ill? No [email or web address] Information n ot available 08/14/2023 In The 14 Days Before Symptom Onset, Have You Had Close Contact With A Person Who Is Under Investigation For COVID-19 While That Person Was Ill? No [email or web address] Information not available 08/14/2023 Have You Been To An Area Known To Be High Risk For COVID-19? No [email or web address] Information not available 08/14/2023 Are You Deaf Or Do You Have Serious Difficulty Hearing? Yes [email or web address] Information not available 09/10/2024 What Type Of Diet Are You Following? REGULAR [email or web address] Information n ot available 08/14/2023 What Is The Highest Grade Or Level Of School You Have Completed Or The Highest Degree You Have Received? [id number] [email or web address] Information not available 09/10/2024 Have You Ever Been Counseled For Unhealthy Alcohol Use? No [email or web address] Information not available 11/16/2020 Do You Use Protection During Sex? Usually [email or web address] Information not available 09/10/2024 Do You Use Your Seat Belt Or Car Seat Routinely? Yes [email or web address] Information not available 08/14/2023 Do You Have Smoke And Carbon Monoxide Detectors In Your Home? Yes Information not available 08/14/2023 How Much Tobacco Do You Smoke? No [email or web address] Information not available 09/10/2024 Do You Use Sunscreen Routinely? Yes [email or web address] Information not available 08/14/2023 Has Tobacco Cessation Counseling Been Provided? No [email or web address] Information not available 11/16/2020 Have You Used IV Drugs? No [email or web address] Information not available 09/10/2024 Do You Have Difficulty Walking Or Climbing Stairs? No Information not available 08/14/2023 Sex: Unknown Functional Status Question Answer Note LastModified by Organizat ion Details LastModified Time Do you use any illicit or recreational drugs? No [email or web address] Information not available 11/16/2020 Do you or have you ever used any other forms of tobacco or nicotine? No [email or web address] Information not available 11/16/2020 What is your level of alcohol consumption? Occasional Information not available 11/16/2020 Are you able to walk independently without assistance or assistive devices? YESWOREST [email or web address] Information not available 08/14/2023 Are you able to care for yourself independently? Yes [email or web address] Information not available 08/14/2023 What is your occupation? Retired [email or web address] Information not available 09/10/2024 Do you have difficulty dressing, bathing, grooming, or toileting? No Information not available 08/14/2023 What is your exercise level? Moderate [email or web address] Information not available 09/10/2024 Mental Status Question Answer Note LastModified by Organization D etails LastModified Time Do you feel stressed (tense, restless, nervous, or anxious, or unable to sleep at night)? [id number] [email or web address] Information not available 09/10/2024 Family History Relationship Description Onset Age of this Age Resolved Age Notes LastModified by Organization Details LastModified Time Mother Anemia [email or web address] Not available 11/16/2020 09:21:13 Mother Heart disease [email or web address] Not available 11/16 09:21:23 Mother Hypertensive disorder [email or web address] Not available 11/16 09:21:33 Mother Disorder of thyroid gland Not available 11/16 09:21:44 Mother Malignant neoplasm of skin [email or web address] Not available 2024 10:06:46 Father Heart disease [email or web address] Not available 11/16 09:21:51 Father Diabetes mellitus [email or web address] Not available 11/16 09:22:03 Father Malignant neoplasm of skin [email or web address] Not available 2024 09:54:57 Paternal Grandmother Diabetes mellitus [email or web address] Not available 11/16 09:22:14 Maternal Grandfather Hypertensive disorder [email or web address] Not available 11/16 09:22:27 Maternal Grandfather Hyperlipidem ia Not available 2024 09:54:57 Maternal Grandfather Chronic hepatitis [email or web address] Not available 2024 09:54:57 Paternal Uncle Diabetes mellitus [email or web address] Not available 11/16 09:22:35 Maternal Grandmother Malignant neoplasm of breast Not available 11/16 18:09:41 Notes:Father: Diabetes melli tus, Congenital heart disease Maternal grandfather: Hyperlipidemia, Hepatitis, Hypertension Maternal grandmother: Cancer, breast Mother: Congenital heart disease, Anemia, Thyroid disease, Hypertension Paternal grandmother: Diabetes mellitus Paternal uncle: Diabetes mellitus Medical History Condition Response Allergies (Food, seasonal, environmental ) N Other N Breast Cancer N Drug/Latex Allergies/Reactions N Blood Transfusion N Dermatologic Disorders N Lung Disease N Defects or Inherited Disease N Breast Problem N Gestational Diabetes N Hematologic disorders N Anesthesia Complications N History of STI Y Deep Vein Thrombosis N Polycystic ovary syndrome N Anxiety Disorder N Autoimmune disease N Arthritis N Infertility N Polyps N Acid Reflux (GERD) Y History of abnormal pap Y Cancer N Stroke N Varicosities N Neurologic/Epilepsy N Endometriosis N High Cholesterol N Headaches N Fibromyalgia N Kidney Disease N Heart Problems N Kidney or Bladder Problems Y Thyroid Problems N GI Problems N Eating Disorder N Anemia Y Art (IVF or FET) N Psychiatric Illness N Ovarian Cancer N Diabetes N Pulmonary (TB, Asthma) N Hepatitis/Liver Disease Y No Past Medical History Y Eczema N Urinary Tract Infection Y Abuse/Domestic Violence N Asthma N Trauma/Violence N Depression/ depression N Heart Disease N Pre-Eclampsia N Hypertension Y Osteoporosis Y Thrombophilias N Gynecological History Statement/Question Response Date of Last Mammogram 03/15/2024 Date of LMP 10/09/1997 N Was last menstrual period normal Y STIs/STDs Y If Post Menopausal, Age at Menopause Date of Last Colonoscopy 02/02/2023 Abnormal Pap Yes HPV Vaccine N Colposcopy Duration of Flow (days) 5 Current Control Method Menopause Age at First Child 33 Frequency of Cycle (Q days) 30 Sexually Active? Y Date of DEXA bone scan 10/17/2023 Age of first menstrual cycle 17 Date of Last Pap Smear 08/14/2023 LMP Approximate Y Obstetrics History GPAL:G 1 P 1 0 0 1 Type Value Full Term 1 Living 1 Total 1 Past Encounters Encounter ID Performer Location Encounter Start Date Encounter Closed Date Diagnosis/Indication Diagnosis SNOMED-CT Code Diagnosis ICD10 Code Diagnosis IMO Codes Diagnosis Note [id number] Debby Heaton [facility] [address] [address] 11/16/2020 09:29:01 11/16/2020 10:37:45 Gynecologic examination 46804361 Z01.419 Take Calcium with Vitamin D 12-1500mg daily. Do monthly self breast exams. It is advised to get annual flu shot in the fall and she could obtain at [facility] or [facility] care clinic. If you haven't received the Tdap vaccine in the last 10 years you should obtain one as well. Have mammogram yearly, bone density every 2-3 years and colonoscop y every 5-10 years depending on findings and history. Engage in daily exercise of low impact aerobic exercise 45-60 minutes 4-5 times weekly. Avoid tobacco and illicit drugs as well as using moderation with alcohol intake less than 1-2 8 oz beverages daily. This lifestyle behavior pattern will lead to less health conditions and longer life span. If BMI greater than 25 weight watchers or dietary consult advised. Questions have been answered. Patient appears to understand instructio ns, but if you have any further questions call or respond to this email PCP: Dr. Yovany Steen-sharona esparza dexa/colon Mammo sent USPSTF recommends against screening for cervical cancer in women older than 65yo who have had adequate prior screening & are not otherwise at high risk for cervical cancer. Genital he rpes simplex [id number] A60.9 Trial of suppressiv e therapy for HSV. RTO x 6mos. [id number] Debby Heaton , [facility] [address] [address] 05/20/2021 14:35:24 05/20/2021 16:34:55 Genital herpes simplex 07921547 A60.9 Completed 3mos out of 6mos Valtrex suppressiv e therapy.Abimael dee out of pocket & was only able to afford 3mos.Would like to continue another 3mos; but has voiced she has not had an outbreak since being on this medication .Requests written script to take to pharmacy that will give her best keith.She will f/u in November 2021 at her next [employer] & we will decide if she would like to continue Valtrex for full year or we can monitor and treat prn. Time spent in visit is a total of 15 mins with at least 50% of visit consisting of counseling and review of plan of care.Addit ional precaution bhavna measures were taken to minimize potential exposure to the Covid-19 virus during this patient s visit, including available hand internet project manager upon arrive, temperatur e check and being asked a series of screening questions. All staff wore face coverings during this encounter, as well as provided additional cleaning and sanitizing of all surfaces, including countertop s, pens, chairs, door handles, light switches, etc, prior to and following the patient s visit. [id number] Debby Heaton [facility] [address] [address] 08/14/2023 14:24:11 08/14/2023 14:58:37 Gynecologic examination [id number] Z01.419 Take Calcium with Vitamin D 12-1500mg daily. Do monthly self breast exams. It is advised to get annual flu shot in the fall and she could obtain at [facility] or [facility] take care clinic. If you haven't received the Tdap vaccine in the last 10 years you should obtain one as well. Have mammogram yearly, bone density every 2-3 years and colonoscop y every 5-10 years depending on findings and history. Engage in daily exercise of low impact aerobic exercise 45-60 minutes 4-5 times weekly. Avoid tobacco and illicit drugs as well as using moderation with alcohol intake less than 1-2 8 oz beverages daily. This lifestyle behavior pattern will lead to less health conditions and longer life span. If BMI greater than 25 weight watchers or dietary consult advised. Questions have been answered. Patient appears to understand instructio ns, but if you have any further questions call or respond to this email PCP: Dr. Yovany Steen-ma naged dexa/colon Dexa- PCPColon-P CP USPSTF recommends against screening for cervical cancer in women older than 65yo who have had adequate prior screening & are not otherwise at high risk for cervical cancer. Genital he rpes simplex [id number] A60.9 RF sentWill let us know regarding insurance coverage. Screening mammography 24 111012 Z12.31 Iván completed mammo this year--comp leted 02/2023 WNL [id number] Cheri Wesley SHANTE [place] [address] [address] 09/10/2024 09:58:56 09/10/2024 12:10:16 Vulval irritation [id number] N90.89 vaginitis/ STI panel sentDiscus sed management [facility] sent for estradiol vaginal cream - r/b/a reviewedvu lvar care guidelines discussed (no scented soaps/prod ucts/wipes , use water/fing ers to cleanse the vulva, avoid constant panty liner use, cotton underwear only)veg based moisturize r routine discussedq uestions answered, BP precaution s discussed - encouraged PCP f/uRTC for med check in 3-4 months Time spent in visit is a total of 30 mins with at least 50% of visit consisting of counseling and review of plan of care. Dyspareunia [id number] N94 .10 Atrophic vulva [id number] N90.5 [id number] Cheri Wesley SHANTE [place] [address],[facility] [place] [address] 01/14/2025 09:54:50 01/14/2025 12:28:15 Vulval irritation [id number] N90.89 doing well on estradiol cream, symptoms improvedre fills sentvulvar care guidelines discussed, questions answered, RTC in 1 yr or sooner if needed Time spent in visit is a total of 20 mins with at least 50% of visit consisting of counseling and review of plan of care. Health Concerns Section Related Observation LastModified by Organization Detai ls LastModified Time None Recorded Concern Status LastModified by Organization Details LastModified Time None Recorded Advance Directives Directive Y: Payers Insurance Date Sequence Insurance Name Policy Number Policy Turner Covered Member ID Turner Member ID Guarantor Name 01/12/2025 2 [employer] [place] (MEDICARE SUPPLEMENT) Madhuri Fowler [id number] Madhuri Malcolm 01/12/2025 1 [place] Madhuri Fowler [id number] Madhuri Fowler Notes Date Note Type Note Provider Name and Address Organization Details Recorded Time 1 text/html Annual GYNReported by PatientHistoryFor history, patient reportsno gynecologic complaints.Genitourinary symptomsFor menstrual cycle, patient reportsnormal menses. For urinary symptoms, patient reportsno hematuriaandno incontinence. For vulva, patient reportsno genital lesion. For vagina, patient reportsnormal vaginal discharge.Breast symptomsFor breast, patient reportsno breast pain,no breast lump, andno nipple discharge.Endocrine symptomsFor sexual complaints, patient reportsno sexual complaints,no pain during intercourse, andnormal libido. For menopausal symptoms, patient reportsno menopausal symptomsandnormal vaginal lubrication.Psychological symptomsFor psychological symptoms, patient reportsno depression,no anxiety, andno pmdd.Preventative measuresFor preventive measures, patient reportsencourage self breast examination,encourage regular exercise,encourage no tobacco use,encourage regular mammograms starting age 40,needs to schedule mammogram, andup to date on colonoscopy screening. 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 Outbreaks at least 4-5/yr [facility] [address], [place], [address], [facility] 11/16/2020 10:24:11 1 text/html ROS as noted in the HPI Here for med check of continuous Valtrex suppressive therapy. Debby Heaton SHANTE- [address], [place], [address], [facility] 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 For vaginal bleeding, patient reportshistory of menopause having occurredandno history of post menopausal bleeding. For urinary symptoms, patient reportsno hematuria,no incontinence,no nocturia, andno urinary frequency. For vulva, patient reportsno genital lesionandno vulvar atrophy. For vagina, patient reportsnormal vaginal dischargeandno vaginal atrophy.Breast symptomsFor breast, patient reportsno breast lump,no nipple discharge, andno breast pain.Psychological symptomsFor sexual complaints, patient reportsno sexual complaints. For psychological symptoms, patient reportsno depressionandno anxiety.Preventative measuresFor preventive measures, patient reportsencourage regular mammograms starting age 40,encourage self breast examination,encourage regular exercise,encourage no tobacco use,mammogram performed within the past year, andhistory of recent colonoscopy. RACHEL Sapp- [address], [place], [address], [facility] 08/14/2023 14:58:11 4 text/html 74yopresents for evaluation of vulvar irritation/itching/and pain with ICsymptoms present for the past 2 yearsIC is painful, dryness, itching/burning for a few days after ICSA with steady partner, no new partnershas been using vagisil wash and jake to the vulvawears panty liner daily in case of urine leakageneg d/c, odors, or pelvic pain RACHEL Tubbs [address], [place], [address], [facility] 09/10/2024 11:51:10 5 text/html 75yopresents for med checkstarted using vaginal estradiol cream at [facility] (09/2024)doing well, dryness/irritation has improved, IC no longer painful RACHEL Tubbs [address], [place], [address], [facility] 01/14/2025 12:23:47 OBGyn Episode Ob Episode Information Episode Created Date Number of Fetuses Patient Bloodtype Patient rh Status Prepregnancy Weight lbs Domestic Partner Domestic Partner Phone Father Name Driver Helper Status 11/16/19 21 1 CLOSED Fetus Data First Name Last Name Admitted to NICU Weight (g) Sex Living Outcome Pediatric Complications Fetus ID Race Codes Race Delivery Type 3798.83 3 F Full Term [id number] Vaginal Delivery Kendall Calculation Initial Kend[place] Date Initial Exam Date Initial Exam Provider Initial Ultrasound Date Last Menstrual Period Date Ultra Sound Weeks Gestation 0 Eighteen To Twenty Week Kendall Update Ultra Sound Date Fundal Height At Umbil Quickening Date Ultra Sound Latest Weeks Gestation Final Kendall Confirmed By Final Kendall Confirmed Date Final Kendall Date Ultra Sound Latest Days Gestation 0 0 Menstrual History Last Menstrual Date Menses Monthly On Bcp Conception Prior Menses Frequency Hcg Plus Date Menarche Onset Age Delivery Information Delivery Date Delivery Type Labor Anesthesia Weeks Gestation Incision Type Labor Labor Length Hrs Delivered By Post Complications Tubal Sterilization Discharge Date Comments 2 40 Discharge Information Feeding Method Contraceptive Method Maternal HG B and HCT Levels
--- OUTSIDE RECORDS SUMMARY | 2025-08-14 16:10 | XMS_ITS | Clinical Summary ---
Author Organization [facility] Address [address] [place] [address] Care Team Providers Care Director Of Primary Care Name Role Phone Unavailable Primary Care Provider Unavailabl e Source Comments [facility],non-owned Affiliates and Associated Physician Practices is amultiple site organization consisting of ambulatory clinics and hospital sitesin [place], [place], [place] and [place]. This disclosure is being madepursuant to the Care Everywhere program and may not contain all information available regarding this patient. Last updated 18.[facility] Social History Tobacco Use Types Packs/Day Years Used Date Smoking Tobacco: Never Assessed Comments Unknown Sex and Gender Information Value Date Recorded Sex Assigned at Not on file Legal Sex Female 10:35 AM CDT Gender Identity Not on file Sexual Orientation Not on file Plan of Treatment Health Maintenance Due Date Last Done Comments BONE DENSITY TESTING 1950 COLOGUARD (AGES 45-75) - COL ON CA SCREENING 1950 COLON MONITORING 1950 COLONOSCOPY - COLON CA SCREENING 1951 CT COLONOGRAPHY - COLON CA SCREENING 1950 Colorectal Cancer Screening 1950 FIT - COLON CA SCREENING 1950 FLEX SIG - COLON CA SCREENING 1950 LIPID TESTING 1950 MAMMOGRAM 1950 HEPATITIS C SCREENING 12/29/1968 DTAP/TDAP/TD VACCINES (1 - Tdap) 1970 PNEUMOCOCCAL VACCINE 50+ (1 of 1 - PCV) 2001 ZOSTER VACCINE (1 of 2) 2001 DEPRESSION SCREENING 10/09/2024 COVID-19 VACCINE (1 - 2023-2 5 season) 2025 INFLUENZA VACCINE (#1) 2025 Respiratory Syncytial Virus (RSV) Vaccine Pt: or over 60 yrs (1 - 1-dose 75+ series) 2026 HEPATITIS B VACCINE Aged Out No longe r eligible based on patient's age to complete this topic HIB VACCINE Aged Out No longer eligi ble based on patient's age to complete this topic HPV VACCINE Aged Out No longer eligi ble based on patient's age to complete this topic MENINGOCOCCAL (Group B) VACC INE SHARED DECISION-MAKING Aged Out No longer eligibl e based on patient's age to complete this topic MENINGOCOCCAL GROUPS A/C/Y/W VACCINE Aged Out No longer eligible b ased on patient's age to complete this topic Insurance MEDICARE [facility] [place]
--- OUTSIDE RECORDS SUMMARY | 2025-08-14 16:10 | XMS_ITS | Clinical Summary ---
Author Organization [facility] Address [address] [place] [address] Care Team Providers Care Electro Mechanical Technician Name Role Phone Debby Heaton Tracey BULK RECEIVER Unavailable [phone] Yovany Delgadillo MD Primary Care Provider Allergies Active Allergy Reactions Criticality Noted Date Comments Codeine Unknown 02/04/[address] (PROTONIX) 40 mg EC tablet Take 40 mg by mouth every morning 12/21/2020 Active valACYclovir (VALTREX) 500 mg tablet Take 500 mg by mouth daily 11/16/2020 Active Active Problems No known active problems Surgical History Surgery Date Site/Laterality Comments APPENDECTOMY CERVICAL CONIZATION W/ LASER Family History Medical History Relation Name Comments Skin cancer Father Breast cancer Maternal Grandmother Skin cancer Mother Relation Name Status Comments Father Maternal Grandmother Mother Social History Tobacco Use Types Packs/Day Years Used Date Smoking Tobacco: Former Cigarettes 0 10 1 995 - 2004 Comments No Sex and Gender Information Value Date Recorded Sex Assigned at Not on file Legal Sex Female 3:33 PM CDT Gender Identity Female 02/04/2021 11:33 AM CDT Sexual Orientation Not on file Obstetrics History Para Term AB IAB SAB Ectopic Multiple Livin g Live Births 2 1 1 Date Outcome GA Total Labor Labor/2nd/3rd Weight Sex Type Anes PTL Manuela A1 A5 Name Clin Term Last Filed Vital Signs Vital Sign Reading Time Taken Comments Blood Pressure - - Pulse - - Temperature - - Respiratory Rate - - Oxygen Saturation - - Inhaled Oxygen Concentration - - Weight 78.9 kg (174 lb) 04/14/2025 12:31 PM CDT Height 162.6 cm (5' 4) 12/09/2021 1:41 PM CABLE TELEVISION ACCESS COORDINATOR Body Mass Index 29.87 12/09/2021 1:41 PM CABLE TELEVISION ACCESS COORDINATOR Plan of Treatment Health Maintenance Due Date Last Done Comments Colon Cancer Screening-Colonoscopy 1950 Depression Screening 1950 Fall Risk Assessment 1950 Hepatitis C Screening 1950 Osteoporosis Screening-Bone Density Scan 1951 Hepatitis B Screening 1969 Zoster Vaccine (1 of 2) 2001 Well Visit 65+ 01/04/2016 Covid-19 Vaccine (2 - 2024-2 6 season) 2025 09/09/2021 Influenza Vaccine (#1) 2025 , 08/04/2020, 07/11/2018, Additional history exists Breast Cancer Screening-Mammogram 04/14/2026 04/14/2025, 03/15/2024, 03/07/2023, Additional history exists DTaP/Tdap/Td Vaccine (2 - Td or Tdap) 07/05/2027 07/05/2017 Pneumococcal vaccine 65+ Completed 08/01/2018, 01/2017 Procedures Procedure Name Priority Date/Time Associated Diagnosis Comments SCREENING MAMMOGRAM BILATERAL W OSMAN Schedule Routine, Read Routine (OP Routine) 04/14/2025 12:39 PM CDT Screening mammogram, encounter for from Last 3 Months or Most Recently Relevant to Health Maintenance Results * Screening Mammogram Bilateral W Osman (04/14/2025 12:39 PM CDT) Anatomical Region Laterality Modality Breast Bilateral Mammography Impressions 04/15/2025 1:43 PM CDT Bilateral No evidence of malignancy in either breast. OVERALL BI-RADS FINAL ASSESSMENT: 1 - Negative RECOMMENDATION: Recommend bilateral annual screening mammography. Narrative 04/15/2025 1:43 PM CDT EXAMINATION: Screening Mammogram Bilateral W Osman: 04/14/2025 COMPARISON: Relevent prior studies available at the time of interpretation were reviewed, including the most recent mammogram on: 03/15/2024. TECHNIQUE: Mammography was performed with 2D and digital breast tomosynthesis (DBT) images. CAD was utilized. BREAST PARENCHYMAL COMPOSITION: The breasts are heterogeneously dense, which may obscure small masses. FINDINGS: Bilateral There is no suspicious mass, calcification, or architectural distortion in either breast. us Self Screening Mammogram IMG MAMMO PROCEDURES Fi nal Result from Last 3 Months or Most Recently Relevant to Health Maintenance Insurance MEDICARE [facility] INS [place] MEDICARE [employer] [place] Care Teams Electro Mechanical Technician Relationship Specialty Start Date End Date Yovany Delgadillo MD [address] [facility] [address] [place] [address] PCP - General Family Medicine 12/29/20 Debby Heaton NP Referring Physician Nurse Practitioner 12/29/20
--- OUTSIDE RECORDS SUMMARY | 2025-08-14 16:10 | XMS_ITS | Encounter Summary ---
Author Organization [facility] Address [address] [place] [address] Care Team Providers Care Internet Marketing Intern Name Role Phone Unavailable Primary Care Provider Unavailabl e Encounter Details Date Type Department Care Team (Late st Contact Info) Description 06/01/[address] [facility] [address] [place] [id number] Yossi Donato MD [address] [place] [address] Social History Tobacco Use Types Packs/Day Years Used Date Smoking Tobacco: Never Assessed Comments Unknown Sex and Gender Information Value Date Recorded Sex Assigned at Not on file Legal Sex Female 10:35 AM CDT Gender Identity Not on file Sexual Orientation Not on file documented as of this encounter Plan of Treatment Not on file documented as of this encounter Procedures Procedure Name Priority Date/Time Associated Diagnosis Comments DERMATOPATHOLOGY Routine 05/31/2018 12:0 0 AM CDT documented in this encounter Results * DERMATOPATHOLOGY (05/31/2018 12:00 AM CDT) Case Report Dermatopathology Report Case: [id number] Authorizing Provider: Yossi Donato MD Collected: 05/31/2018 12:00 AM Pathologist: Mary Macias MD Received: 06/01/2018 10:48 AM Specimens: A) - Skin, left ala B) - Skin, left cheek 8 11:19 AM CDT DERMATOPATHOLOGY LABORATORY Final Diagnosis Specimen A. SKIN, left ala: ANGIOFIBROMA (FIBROUS PAPULE) (D21.0) (see microscopic description) Specimen B. SKIN, left cheek: PIGMENTED SEBORRHEIC KERATOSIS (L82.1) 8 11:19 AM CDT DERMATOPATHOLOGY LABORATORY at 1119 CDT Clinical History A: R/O BCC. B: R/O dys nevus, BCC, ISK. 8 11:19 AM [facility] DERMATOPATHOLOGY LABORATORY Gross Description Specimen A: Received is one formalin filled container labeled with the patient's name and designated left ala. The specimen consists of a shave biopsy measuring [id number]. Jar 0. Specimen B: Received is one formalin filled container labeled with the patient's name and designated left cheek. The specimen consists of a shave biopsy measuring [id number]. Jar 0. 8 11:19 AM [facility] DERMATOPATHOLOGY LABORATORY Microscopic Description Specimen A. SKIN, left ala: This dome-shaped lesion contains dilated blood vessels, coarse collagen bundles, and stellate fibroblasts. Additional deeper sections were obtained and reviewed. Specimen B. SKIN, left cheek: Sections show an acanthotic lesion composed of relatively uniform keratinocytes. There is hyperkeratosis and pseudo horn cysts. Pigment is present in the keratinocytes composing this tumor. 8 11:19 AM [facility] DERMATOPATHOLOGY LABORATORY Disclaimer An external and internal positive and negative controls are appropriate for the histochemical, immunohistochemical and immunofluorescence stain(s) in this case (if any), except where stated explicitly. The performance characteristics of the stain(s) cited in this report were developed and its performance characteristic determined by the Dermatopathology Laboratory at [facility]. These tests need not be, and therefore are not, approved by the [place] Food and Drug Administration. The tests are used for clinical purposes. Billing Codes Specimen Charges Stain Charges 99995 19309 1 1 8 11:19 AM T DERMATOPATHOLOGY LABORATORY Embedded Images 8 11:19 AM T DERMATOPATHOLOGY LABORATORY Pathology/Cytology TISSUE SPECIMEN FROM SKIN / Unknown 05/31/2018 06/01/2018 10:48 AM CDT Miscellaneous samples (specimen) TISSUE SPECIMEN FROM SKIN / Unknown 05/31/2018 06/01/2018 10:48 AM CDT Yossi Donato MD LAB - PATHOLOGY/CYTOLOGY ORD ERABLES Final Result DERMATOPATHOLOGY LABORATORY [facility] - Department of Dermatology [address] [place] [address], [facility] [phone] documented in this encounter Visit Diagnoses Not on filedocumented in this encounter
== END 2025-08-14 10:50 | disposition home or self-care (01) ==
PROVIDERS: PCP Family Medicine; Referring Provider Physician Assistant; Visit Provider Internal Medicine Gastroenterology
PROC: 0DJ08ZZ Inspection of Upper Intestinal Tract, Via Natural or Artificial Opening Endoscopic (ICD-10-PCS; CPT 43239; principal; 2025-08-14 10:30)
DX: R13.10 Dysphagia, unspecified (principal); I12.9 Hypertensive chronic kidney disease with stage 1 through stage 4 chronic kidney disease, or unspecified chronic kidney disease; N18.30 Chronic kidney disease, stage 3 unspecified; M85.88 Other specified disorders of bone density and structure, other site; Z98.890 Other specified postprocedural states; Z87.891 Personal history of nicotine dependence; Z82.49 Family history of ischemic heart disease and other diseases of the circulatory system
CPT/HCPCS: 43239; 43450; 88305; J2704; J7120